=== PATIENT | female | born 1990 | race African-American/Black ===

== ENCOUNTER 2016-05-10 21:41 | Emergency (ER) | payer MEDICAID ==
[~2016-05-10] VITALS: Ht 160 cm; Wt 102.0 kg
[~2016-05-10 21:41] MED LIST: IBUP800T23 PO; PROM25TA5 PO
[2016-05-10 21:44] VITALS: BP 119/64; PULSE 79; RESP 16; TEMP 98.2; O2SAT 100
== END 2016-05-10 23:15 | disposition left against medical advice (07) ==
LOC: NED 21:41
DX: Z53.21 Procedure and treatment not carried out due to patient leaving prior to being seen by health care provider (principal)
CPT/HCPCS: 99281

== ENCOUNTER 2016-05-26 13:57 | Emergency (ER) | payer MEDICAID ==
[~2016-05-26] VITALS: Ht 157.5 cm; Wt 100.0 kg
[2016-05-26 14:02] VITALS: BP 131/64; PULSE 106; RESP 24; TEMP 98.7; O2SAT 100
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
[2016-05-26] MEDS ORDERED: methylPREDNISolone SOD SUCC 125 MG/2 ML VIAL IVP ONE (14:15)
[2016-05-26] MEDS ORDERED: SODIUM CHLORIDE 0.9% FLUSH 5 ML FLUSH IVF PRN (14:15)
[2016-05-26 14:22] VITALS: O2SAT 100
[2016-05-26] MEDS ORDERED: VENTAER INH (14:25)
[2016-05-26] MEDS ORDERED: TOPA25TA8 PO (14:25)
[2016-05-26] MEDS ORDERED: PAME25CA PO (14:25)
[2016-05-26] MEDS ORDERED: FERR1TAB36 PO (14:25)
[2016-05-26] MEDS: RESP: ALBUTEROL 2.5 MG/IPRATROPIUM 0.5 MG NEB (SCH) INH ×2 (14:31→14:32)
[2016-05-26 15:02] VITALS: BP 118/75; PULSE 99; RESP 22; O2SAT 98
[2016-05-26] MEDS ORDERED: ADVA250A INH (15:21)
[2016-05-26] MEDS ORDERED: ALBU6.7H INH (15:21)
[2016-05-26] MEDS ORDERED: PRED50 PO (15:21)
--- NOTE | 2016-05-27 21:18 | EKG ---
Date Performed: 05/26/2016 Time Performed: 14:15:31 PTAGE: 25 years EKG: SINUS TACHYCARDIA POSSIBLE RIGHT VENTRICULAR CONDUCTION DELAY NONSPECIFIC T-WAVE ABNORMALIT Y ABNORMAL RHYTHM ECG PREVIOUS TRACING : 05/09/2012 19.58 DOCTOR: Rene Lane Interpretating Date/Time 05/27/2016 21:08:53
== END 2016-05-26 15:34 | disposition home or self-care (01) ==
LOC: NEPC 13:57
DX: J45.901 Unspecified asthma with (acute) exacerbation (principal); F17.210 Nicotine dependence, cigarettes, uncomplicated; R94.31 Abnormal electrocardiogram [ECG] [EKG]
CPT/HCPCS: 93005; 94664; 96374; 99283; J2930

== ENCOUNTER 2016-07-07 14:06 | Emergency (ER) | payer MEDICAID ==
[~2016-07-07] VITALS: Ht 160 cm; Wt 104.5 kg
[~2016-07-07 14:06] MED LIST changes: +ADVA250A INH; +ALBU6.7H INH; +FERR1TAB36 PO; +PAME25CA PO; +PRED50 PO; +TOPA25TA8 PO; +VENTAER INH
[2016-07-07 14:07] VITALS: BP 120/59; PULSE 79; RESP 18; TEMP 98.6; O2SAT 98
--- NOTE | 2016-07-07 15:03 | PD ---
HPI Chief Complaint: Headache Time Seen by Provider: 15:03 Travel History International Travel<30 days: No Contact w/Intl Traveler<30days: No History of Present Illness HPI 25 year-old female history of migraine headaches presents to emergency department for evaluation of persistent migraine headache for the last 5 days. Patient states her migraine headaches typically do not last this long. She states that she has also been feeling dizzy and her vision has been different. She reports this typically does not have with her migraine headaches. No recent illnesses, fever, or chills. Denies any nausea or vomiting. No other focal deficits or weakness. Patient states she is not . Denies any urinary symptoms. No other symptoms to report. PFSH Past Medical History Anemia: Yes Asthma: Yes Autoimmune Disease: No Blood Disorders: No Anxiety: No Depression: Yes Cancer: No Cardiovascular Problems: No Diabetes: No Diminished Hearing: No Gastrointestinal Disorders: Yes Genitourinary: No Musculoskeletal: No Neurologic: No Psychiatric: No Respiratory: Yes (ASTHMA) Immunizations Current: Yes Migraines: Yes Seizures: No Thyroid Disease: No Ulcer: No ?: Not LMP: : 2 Para: 2 Miscarriage: 0 : 0 Past Surgical History Section: Yes (X2) Gynecologic Surgery: Yes (CSECTION) Other Surgery: No Social History Alcohol Use: No Tobacco Use: Yes (/2 ppd ) Substance Use: No Allergies-Medications (Allergen,Severity, Reaction): Coded Allergies: Penicillin (Verified Allergy, Severe, HIVES, 05/26/16) Reported Meds & Prescriptions Reported Meds & Active Scripts Active Proventil Hfa 6.7 GM Inh (Albuterol Sulfate) 90 Mcg/Act Aer 2 Puff INH Q4-6H PRN Advair Diskus Inh (Fluticasone-Salmeterol Inh) 250-50 Mcg/Blist Aer 1 Puff INH BID Rinse mouth after use. Prednisone 50 Mg Tab 50 Mg PO DAILY Phenergan (Promethazine HCl) 25 Mg Tab 25 Mg PO Q6H PRN Ibuprofen 800 Mg Tab 800 Mg PO Q8H PRN Reported Iron (Ferrous Sulfate) 325 Mg Tab 325 Mg PO DAILY Take Topamax (Topiramate) 25 Mg Tab 25 Mg PO BID Pamelor (Nortriptyline HCl) 25 Mg Cap 25 Mg PO HS Ventolin Hfa 18 GM Inh (Albuterol Sulfate) 90 Mcg/Act Aer 2 Puff INH Q4H PRN Review of Systems Except as stated in HPI: all other systems reviewed are Neg Physical Exam Narrative GENERAL: Well-nourished, well-developed female patient, ambulatory with a nonantalgic gait no acute distress SKIN: Warm and dry. HEAD: Normocephalic. Atraumatic EYES: No scleral icterus. No injection or drainage. NECK: Supple, trachea midline. No JVD or lymphadenopathy. CARDIOVASCULAR: Regular rate and rhythm without murmurs, gallops, or rubs. RESPIRATORY: Breath sounds equal bilaterally. No accessory muscle use. GASTROINTESTINAL: Abdomen soft, non-tender, nondistended. MUSCULOSKELETAL: No cyanosis, or edema. BACK: Nontender without obvious deformity. No CVA tenderness. NEUROLOGICAL: Awake and alert. Cranial nerves II through XII intact. Motor and sensory grossly within normal limits. Five out of 5 muscle strength in all muscle groups. Normal speech. Data Data Last Documented VS Vital Signs Date Time Temp Pulse Resp B/P Pulse Ox O2 Delivery O2 Flow Rate FiO2 07/07/16 14:07 98.6 79 18 120/59 98 Room Air Orders Complete Blood Count With Diff (07/07/16 14:50) Basic Metabolic Panel (Bmp) (07/07/16 14:50) Urinalysis - C+S If Indicated (07/07/16 14:50) Ct Brain W/O Iv Contrast(Rout) (07/07/16 ) Ed Urine Pregnancytest Poc (07/07/16 14:50) Sodium Chlor 0.9% 1000 Ml Inj (Ns 1000 M (07/07/16 17:45) Prochlorperazine Inj (Compazine Inj) (07/07/16 17:45) Labs Laboratory Tests Test 07/07/16 07/07/16 15:00 15:10 White Blood Count 7.5 TH/MM3 Red Blood Count 4.51 MIL/MM3 Hemoglobin 11.2 GM/DL Hematocrit 33.4 % Mean Corpuscular Volume 74.0 FL Mean Corpuscular Hemoglobin 24.7 PG Mean Corpuscular Hemoglobin 33.4 % Concent Red Cell Distribution Width 21.8 % Platelet Count 393 TH/MM3 Mean Platelet Volume 8.3 FL Neutrophils (%) (Auto) 50.4 % Lymphocytes (%) (Auto) 32.6 % Monocytes (%) (Auto) 11.4 % Eosinophils (%) (Auto) 4.3 % Basophils (%) (Auto) 1.3 % Neutrophils # (Auto) 3.8 TH/MM3 Lymphocytes # (Auto) 2.5 TH/MM3 Monocytes # (Auto) 0.9 TH/MM3 Eosinophils # (Auto) 0.3 TH/MM3 Basophils # (Auto) 0.1 TH/MM3 CBC Comment AUTO DIFF Differential Comment AUTO DIFF CONFIRMED Platelet Estimate NORMAL Platelet Morphology Comment ENLARGED Target Cells 1+ Keratocytes OCC Sodium Level 139 MEQ/L Potassium Level 3.8 MEQ/L Chloride Level 107 MEQ/L Carbon Dioxide Level 25.0 MEQ/L Anion Gap 7 MEQ/L Blood Urea Nitrogen 8 MG/DL Creatinine 0.82 MG/DL Estimat Glomerular Filtration 104 ML/MIN Rate Random Glucose 101 MG/DL Calcium Level 8.6 MG/DL Urine Color YELLOW Urine Turbidity CLEAR Urine pH 6.0 Urine Specific [place] 1.015 Urine Protein NEG mg/dL Urine Glucose (UA) NEG mg/dL Urine Ketones NEG mg/dL Urine Occult Blood MOD Urine Nitrite NEG Urine Bilirubin NEG Urine Urobilinogen LESS THAN 2.0 MG/DL Urine Leukocyte Esterase NEG Urine RBC 2 /hpf Urine WBC 2 /hpf Urine Squamous Epithelial 1 /hpf Cells Urine Mucus FEW /lpf Microscopic Urinalysis Comment CULT NOT INDICATED MDM Medical Decision Making Medical Screen Exam Complete: Yes Emergency Medical Condition: Yes Medical Record Reviewed: Yes Differential Diagnosis Migraine headache versus ocular migraine versus tension headache versus cluster headache versus electrolyte abnormality versus other intracranial etiology. Narrative Course 25year-old female presents to the emergency department for evaluation of a persistent migraine headache, different from her typical migraine headaches for duration and visual disturbances. Workup was initiated in triage. Once a medical bed becomes available, patient will be transferred and care assumed by that provider. Condition: Stable Eliza ParkP Jul 07, 2016 15:03
[2016-07-07 15:38] LABS: AUTOMATED NEUTROPHIL # 3.8 TH/MM3 (1.8-7.7); BASOPHIL # 0.1 TH/MM3 (0-0.2); BASOPHIL % 1.3 % (0.0-2.0); EOSINOPHIL # 0.3 TH/MM3 (0-0.4); EOSINOPHIL % 4.3 % (0.0-4.0); HEMATOCRIT 33.4 % (35.0-46.0); LYMPH % 32.6 % (9.0-44.0); LYMPHOCYTE # 2.5 TH/MM3 (1.0-4.8); MEAN CORPUSCULAR HEMOGLOBIN 24.7 PG (27.0-34.0); MEAN CORPUSCULAR HGB CONC 33.4 % (32.0-36.0); MONO % 11.4 % (0.0-8.0); NEUT % 50.4 % (16.0-70.0); PLATELET COUNT 393 TH/MM3 (150-450); RED BLOOD COUNT 4.51 MIL/MM3 (4.00-5.30); RED CELL DISTRIBUTION WIDTH 21.8 % (11.6-17.2); WHITE BLOOD COUNT 7.5 TH/MM3 (4.0-11.0)
[2016-07-07 15:43] LABS: HEMO FLAGS AUTO DIFF
[2016-07-07 15:51] LABS: BLOOD, URINE MOD (NEG); COMMENT (UR) CULT NOT INDICATED; CULTURE IF INDICATED CULT NOT INDICATED; GLUCOSE,URINE NEG (NEG); KETONE, URINE NEG (NEG); MUCUS URINE FEW /lpf (OCC); NITRITE,URINE NEG (NEG); SQUAMOUS EPITHELIAL CELL URINE 1 /hpf (0-5); URINE COLOR YELLOW (YELLW/STRAW)
[2016-07-07 16:15] LABS: POTASSIUM 3.8 MEQ/L (3.5-5.1)
--- NOTE | 2016-07-07 16:17 | RADRPT ---
EXAM DATE/TIME: 07/07/2016 15:40 [facility] COMPARISON: CT BRAIN W/O CONTRAST, November 21, 2011, 16:26. INDICATIONS : Patient complains of migraine RADIATION DOSE: 56.35 CTDIvol (mGy) MEDICAL HISTORY : None SURGICAL HISTORY : None. ENCOUNTER: Initial ACUITY: 2 days PAIN SCALE: 8/10 LOCATION: cranial TECHNIQUE: Multiple contiguous axial images were obtained of the head. Using automated exposure control and adjustment of the mA and/or kV according to patient size, radiation dose was kept as low as reasonably achievable to obtain optimal diagnostic quality images. FINDINGS: CEREBRUM: The ventricles are normal for age. No evidence of midline shift, mass lesion, hemorrha ge or acute infarction. No extra-axial fluid collections are seen. POSTERIOR FOSSA: The cerebellum and brainstem are intact. The 4th ventricle is midline. The cer ebellopontine angle is unremarkable. EXTRACRANIAL: The visualized portion of the orbits is intact. SKULL: The calvaria is intact. No evidence of skull fracture. CONCLUSION: Negative for an acute process. Ray Lamb MD FACR on July 07, 2016 at 16:14 Board Certified Radiologist. This report was verified electronically.
[2016-07-07 16:26] LABS: KERATOCYTES OCC (NORMAL); TARGET CELLS 1+ (NORMAL)
[2016-07-07 16:27] LABS: PLATELET ESTIMATE SMEAR NORMAL (NORMAL); PLATELET MORPHOLOGY ENLARGED (NORMAL); SCAN/DIFF AUTO DIFF CONFIRMED
--- NOTE | 2016-07-07 17:25 | PD ---
HPI Chief Complaint: Headache Time Seen by Provider: 17:22 Travel History International Travel<30 days: No Contact w/Intl Traveler<30days: No History of Present Illness HPI 25-year-old female came to the emergency room with history of headache. Patient says that this headache has been persistent for past 4 days. She has history of migraines and she took migraine medication but it did not get better. She describes the pain all around her head. No history of vomiting or nausea. No history of fever or chills. No history of neck pain. She was seen by the provider in triage earlier work or workup was started and head CT was done. Medical time she came in her results were back and they're within normal limits. Her vital signs were within normal limits. Patient describes the pain 7 out of 10. PFSH Past Medical History Narrative Medical List of her past medical, surgical, social and family history is reviewed from the nursing note. Anemia: Yes Asthma: Yes Autoimmune Disease: No Blood Disorders: No Anxiety: No Depression: Yes Cancer: No Cardiovascular Problems: No Diabetes: No Diminished Hearing: No Gastrointestinal Disorders: Yes Genitourinary: No Musculoskeletal: No Neurologic: No Psychiatric: No Respiratory: Yes (ASTHMA) Immunizations Current: Yes Migraines: Yes Seizures: No Thyroid Disease: No Ulcer: No ?: Not LMP: : 2 Para: 2 Miscarriage: 0 : 0 Past Surgical History Section: Yes (X2) Gynecologic Surgery: Yes (CSECTION) Other Surgery: No Social History Alcohol Use: No Tobacco Use: Yes (1/2 ppd ) Substance Use: No Allergies-Medications (Allergen,Severity, Reaction): Coded Allergies: Penicillin (Verified Allergy, Severe, HIVES, 05/26/16) Comments Allergies reviewed from the nursing note. Reported Meds & Prescriptions Reported Meds & Active Scripts Active Proventil Hfa 6.7 GM Inh (Albuterol Sulfate) 90 Mcg/Act Aer 2 Puff INH Q4-6H PRN Advair Diskus Inh (Fluticasone-Salmeterol Inh) 250-50 Mcg/Blist Aer 1 Puff INH BID Rinse mouth after use. Ibuprofen 800 Mg Tab 800 Mg PO Q8H PRN Reported Iron (Ferrous Sulfate) 325 Mg Tab 325 Mg PO DAILY Take Pamelor (Nortriptyline HCl) 25 Mg Cap 25 Mg PO HS Ventolin Hfa 18 GM Inh (Albuterol Sulfate) 90 Mcg/Act Aer 2 Puff INH Q4H PRN Narrative Medication List of her home medications reviewed from the nursing note. Review of Systems Except as stated in HPI: all other systems reviewed are Neg Physical Exam Narrative GENERAL: Awake, alert, obese, mild distress SKIN: Warm and dry. HEAD: Atraumatic. Normocephalic. EYES: Pupils equal and round. No scleral icterus. No injection or drainage. ENT: No nasal bleeding or discharge. Mucous membranes pink and moist. NECK: Trachea midline. No JVD. No neck rigidity CARDIOVASCULAR: Regular rate and rhythm. No murmur appreciated. RESPIRATORY: No accessory muscle use. Clear to auscultation. Breath sounds equal bilaterally. GASTROINTESTINAL: Abdomen soft, non-tender, nondistended. Hepatic and splenic margins not palpable. MUSCULOSKELETAL: No obvious deformities. No clubbing. No cyanosis. No edema. NEUROLOGICAL: Awake and alert. No obvious cranial nerve deficits. Motor grossly within normal limits. Normal speech. PSYCHIATRIC: Appropriate mood and affect; insight and judgment normal. Data Data Last Documented VS Vital Signs Date Time Temp Pulse Resp B/P Pulse Ox O2 Delivery O2 Flow Rate FiO2 07/07/16 21:14 74 18 112/60 98 07/07/16 19:24 Room Air 07/07/16 14:07 98.6 Orders Complete Blood Count With Diff (07/07/16 14:50) Basic Metabolic Panel (Bmp) (07/07/16 14:50) Urinalysis - C+S If Indicated (07/07/16 14:50) Ct Brain W/O Iv Contrast(Rout) (07/07/16 ) Ed Urine Pregnancytest Poc (07/07/16 14:50) Sodium Chlor 0.9% 1000 Ml Inj (Ns 1000 M (07/07/16 17:45) Prochlorperazine Inj (Compazine Inj) (07/07/16 17:45) Sodium Chlor 0.9% 1000 Ml Inj (Ns 1000 M (07/07/16 18:30) Labs Laboratory Tests Test 07/07/16 07/07/16 15:00 15:10 White Blood Count 7.5 TH/MM3 Red Blood Count 4.51 MIL/MM3 Hemoglobin 11.2 GM/DL Hematocrit 33.4 % Mean Corpuscular Volume 74.0 FL Mean Corpuscular Hemoglobin 24.7 PG Mean Corpuscular Hemoglobin 33.4 % Concent Red Cell Distribution Width 21.8 % Platelet Count 393 TH/MM3 Mean Platelet Volume 8.3 FL Neutrophils (%) (Auto) 50.4 % Lymphocytes (%) (Auto) 32.6 % Monocytes (%) (Auto) 11.4 % Eosinophils (%) (Auto) 4.3 % Basophils (%) (Auto) 1.3 % Neutrophils # (Auto) 3.8 TH/MM3 Lymphocytes # (Auto) 2.5 TH/MM3 Monocytes # (Auto) 0.9 TH/MM3 Eosinophils # (Auto) 0.3 TH/MM3 Basophils # (Auto) 0.1 TH/MM3 CBC Comment AUTO DIFF Differential Comment AUTO DIFF CONFIRMED Platelet Estimate NORMAL Platelet Morphology Comment ENLARGED Target Cells 1+ Keratocytes OCC Sodium Level 139 MEQ/L Potassium Level 3.8 MEQ/L Chloride Level 107 MEQ/L Carbon Dioxide Level 25.0 MEQ/L Anion Gap 7 MEQ/L Blood Urea Nitrogen 8 MG/DL Creatinine 0.82 MG/DL Estimat Glomerular Filtration 104 ML/MIN Rate Random Glucose 101 MG/DL Calcium Level 8.6 MG/DL Urine Color YELLOW Urine Turbidity CLEAR Urine pH 6.0 Urine Specific [place] 1.015 Urine Protein NEG mg/dL Urine Glucose (UA) NEG mg/dL Urine Ketones NEG mg/dL Urine Occult Blood MOD Urine Nitrite NEG Urine Bilirubin NEG Urine Urobilinogen LESS THAN 2.0 MG/DL Urine Leukocyte Esterase NEG Urine RBC 2 /hpf Urine WBC 2 /hpf Urine Squamous Epithelial 1 /hpf Cells Urine Mucus FEW /lpf Microscopic Urinalysis Comment CULT NOT INDICATED MDM Medical Decision Making Medical Screen Exam Complete: Yes Emergency Medical Condition: Yes Medical Record Reviewed: Yes Differential Diagnosis Status migrainous, headache NOS Narrative Course 7:03 PM patient was given IV Reglan and IV fluid bolus. I will discharge her home at this point. Procedures EKG Prior to Arrival: No Diagnosis Primary Impression: Status migrainosus Referrals: Primary Care Physician 2 days Additional Instructions: Please return to the ER if the condition worsens or any other new concerns. Otherwise follow with his primary care. Do not drink alcohol or smoke cigarettes. Try to stay away from television, computer or telephone screens and give her eyes rest. Follow-up with your primary care. Drink lots of fluid. Med/Other Pt SpecificInfo: No Change to Meds Disposition: 01 DISCHARGE HOME Condition: Stable Dayday Rubin MD Jul 07, 2016 17:25
[2016-07-07] MEDS ORDERED: SODIUM CHLOR 0.9% 1000 ML INJ 1,000 ML IV ONE ×2 (17:45→18:30)
[2016-07-07] MEDS ORDERED: PROCHLORPERAZINE INJ 10 MG/2 ML VIAL IVS ONE (17:45)
[2016-07-07 19:24] VITALS: BP 110/60; PULSE 72; RESP 18; O2SAT 99
[2016-07-07 21:14] VITALS: BP 112/60
== END 2016-07-07 21:15 | disposition home or self-care (01) ==
LOC: NEPC 14:06
DX: G43.801 Other migraine, not intractable, with status migrainosus (principal); R42 Dizziness and giddiness; H53.8 Other visual disturbances; F17.200 Nicotine dependence, unspecified, uncomplicated; Z86.2 Personal history of diseases of the blood and blood-forming organs and certain disorders involving the immune mechanism; Z87.09 Personal history of other diseases of the respiratory system; Z86.59 Personal history of other mental and behavioral disorders; Z87.19 Personal history of other diseases of the digestive system; Z86.69 Personal history of other diseases of the nervous system and sense organs
CPT/HCPCS: 70450; 80048; 81001; 84703; 85025; 96374; 99284; J0780; J7030

== ENCOUNTER 2016-09-20 01:21 | Emergency (ER) | payer MEDICAID ==
[~2016-09-20] VITALS: Ht 160 cm; Wt 102.6 kg
[~2016-09-20 01:21] MED LIST changes: -PRED50 PO; -PROM25TA5 PO; -TOPA25TA8 PO
[2016-09-20 01:26] VITALS: BP 107/65; PULSE 89; RESP 16; TEMP 98.3; O2SAT 99
--- NOTE | 2016-09-20 02:51 | PD ---
HPI Chief Complaint: Headache Time Seen by Provider: 02:47 Travel History International Travel<30 days: No Contact w/Intl Traveler<30days: No Traveled to known affect area: No History of Present Illness HPI The patient is a 25-year-old female that had a global migraine, her typical migraine beginning around 6 PM yesterday. She states she usually gets Compazine either I am her IV. She is a difficult IV stick.She has no nausea at this time but has been nauseated. There is been no vomiting. She denies any focal neurologic change. The headache is of gradual onset. PFSH Past Medical History Anemia: Yes Asthma: Yes Autoimmune Disease: No Blood Disorders: No Anxiety: No Depression: Yes Cancer: No Cardiovascular Problems: No Diabetes: No Diminished Hearing: No Gastrointestinal Disorders: Yes Genitourinary: No Musculoskeletal: No Neurologic: No Psychiatric: No Respiratory: Yes (ASTHMA) Immunizations Current: Yes Migraines: Yes Seizures: No Thyroid Disease: No Ulcer: No ?: Unknown LMP: 08/26/16 : 3 Para: 2 Miscarriage: 0 : 0 Ectopic : Yes Past Surgical History Section: Yes (X2) Gynecologic Surgery: Yes (CSECTION) Other Surgery: No Social History Alcohol Use: No Tobacco Use: Yes (/2 ppd ) Substance Use: No Allergies-Medications (Allergen,Severity, Reaction): Coded Allergies: Penicillin (Verified Allergy, Severe, HIVES, 05/26/16) Reported Meds & Prescriptions Reported Meds & Active Scripts Active Proventil Hfa 6.7 GM Inh (Albuterol Sulfate) 90 Mcg/Act Aer 2 Puff INH Q4-6H PRN Advair Diskus Inh (Fluticasone-Salmeterol Inh) 250-50 Mcg/Blist Aer 1 Puff INH BID Rinse mouth after use. Ibuprofen 800 Mg Tab 800 Mg PO Q8H PRN Reported Iron (Ferrous Sulfate) 325 Mg Tab 325 Mg PO DAILY Take Pamelor (Nortriptyline HCl) 25 Mg Cap 25 Mg PO HS Ventolin Hfa 18 GM Inh (Albuterol Sulfate) 90 Mcg/Act Aer 2 Puff INH Q4H PRN Review of Systems Except as stated in HPI: all other systems reviewed are Neg Physical Exam Narrative GENERAL: The patient is alert, oriented 3 and moderate apparent distress with her headache. Her vital signs are normal. SKIN: Focused skin assessment warm/dry. HEAD: Atraumatic. Normocephalic. EYES: Pupils equal and round. No scleral icterus. No injection or drainage. ENT: No nasal bleeding or discharge. Mucous membranes pink and moist. NECK: Trachea midline. No JVD. There is no meningismus present. CARDIOVASCULAR: Regular rate and rhythm. No murmur appreciated. RESPIRATORY: No accessory muscle use. Clear to auscultation. Breath sounds equal bilaterally. GASTROINTESTINAL: Abdomen soft, non-tender, nondistended. Hepatic and splenic margins not palpable. MUSCULOSKELETAL: No obvious deformities. No clubbing. No cyanosis. No edema. NEUROLOGICAL: Awake and alert. No obvious cranial nerve deficits. Motor grossly within normal limits. Normal speech and gait. PSYCHIATRIC: Appropriate mood and affect; insight and judgment normal. Data Data Last Documented VS Vital Signs Date Time Temp Pulse Resp B/P Pulse Ox O2 Delivery O2 Flow Rate FiO2 09/20/16 01:36 20 99 09/20/16 01:26 98.3 89 107/65 Room Air Orders Prochlorperazine Inj (Compazine Inj) (09/20/16 03:00) Ketorolac Inj (Toradol Inj) (09/20/16 03:00) MDM Medical Decision Making Medical Screen Exam Complete: Yes Emergency Medical Condition: Yes Medical Record Reviewed: Yes Differential Diagnosis Migraine headache, tension headache, tension/migraine combination headache, cluster headache, subarachnoid hemorrhagehighly unlikely Narrative Course The patient appears to have a migraine headache. It is now 0331 and the patient feels better and wants to go home. Diagnosis Primary Impression: Migraine headache without aura Additional Instructions: Follow-up with her primary care physician this week, your primary care physician may be able to write something to prevent these headaches. Med/Other Pt SpecificInfo: No Change to Meds Disposition: 01 DISCHARGE HOME Condition: Stable Mal Acosta MD September 20, 2016 02:51
[2016-09-20] MEDS ORDERED: PROCHLORPERAZINE INJ 10 MG/2 ML VIAL IM ONE (03:00)
[2016-09-20] MEDS ORDERED: KETOROLAC TROMETHAMINE 60 MG/2 ML (IM) VIAL IM ONE (03:00)
[2016-09-20 03:43] VITALS: BP 110/67
== END 2016-09-20 03:46 | disposition home or self-care (01) ==
LOC: PHED 01:21
DX: G43.909 Migraine, unspecified, not intractable, without status migrainosus (principal); D64.9 Anemia, unspecified; J45.909 Unspecified asthma, uncomplicated; F32.9 Major depressive disorder, single episode, unspecified; F17.200 Nicotine dependence, unspecified, uncomplicated; Z79.52 Long term (current) use of systemic steroids; Z79.899 Other long term (current) drug therapy; Z88.0 Allergy status to penicillin
CPT/HCPCS: 96372; 99283; J0780; J1885

== ENCOUNTER 2016-12-06 20:09 | Emergency (ER) | payer MEDICAID ==
[~2016-12-06] VITALS: Ht 162.6 cm; Wt 102.3 kg
[2016-12-06 20:25] VITALS: BP 132/79; PULSE 70; RESP 12; TEMP 98.6; O2SAT 99
--- NOTE | 2016-12-06 20:46 | PD ---
HPI Chief Complaint: Dental Pain Time Seen by Provider: 20:45 Travel History International Travel<30 days: No Contact w/Intl Traveler<30days: No History of Present Illness HPI 25-year-old Af[place] female presents the emergency Department with increasing dental pain status post extraction of the #15 tooth 2 days ago. Patient is currently on clindamycin 150 mg every 6 hours as well as ibuprofen, and Lortab. She is also using Peridex oral rinse twice daily. Patient states increasing pain but not increasing swelling in the left upper jaw. Patient describes sensitivity to hot and cold. She denies difficulty swallowing, fever , chills, or other symptoms. She states she is allergic to penicillin but can take amoxicillin. PFSH Past Medical History Anemia: Yes Asthma: Yes Autoimmune Disease: No Blood Disorders: No Anxiety: No Depression: Yes Cancer: No Cardiovascular Problems: No Diabetes: No Diminished Hearing: No Gastrointestinal Disorders: Yes Genitourinary: No Musculoskeletal: No Neurologic: No Psychiatric: No Respiratory: Yes (ASTHMA) Immunizations Current: Yes Migraines: Yes Seizures: No Thyroid Disease: No Ulcer: No : 3 Para: 2 Miscarriage: 0 : 0 Ectopic : Yes Past Surgical History Section: Yes (X2) Gynecologic Surgery: Yes (CSECTION) Other Surgery: No Social History Alcohol Use: No Tobacco Use: Yes (1/2 ppd ) Substance Use: No Allergies-Medications (Allergen,Severity, Reaction): Coded Allergies: Penicillin (Verified Allergy, Severe, HIVES, 12/06/16) Reported Meds & Prescriptions Reported Meds & Active Scripts Active Advair Diskus Inh (Fluticasone-Salmeterol Inh) 250-50 Mcg/Blist Aer 1 Puff INH BID Rinse mouth after use. Ibuprofen 800 Mg Tab 800 Mg PO Q8H PRN Reported Topamax (Topiramate) 50 Mg Tab 50 Mg PO DAILY Ferrous Sulfate 325 Mg (65 Mg Iron) Tablet 325 Mg PO DAILY Pamelor (Nortriptyline HCl) 25 Mg Cap 25 Mg PO HS Ventolin Hfa 18 GM Inh (Albuterol Sulfate) 90 Mcg/Act Aer 2 Puff INH Q4H PRN Review of Systems Except as stated in HPI: all other systems reviewed are Neg General / Constitutional: No: Fever Eyes: No: Visual changes HENT: Positive: Dental Difficulties, No: Headaches Cardiovascular: No: Chest Pain or Discomfort Respiratory: No: Shortness of Breath Gastrointestinal: No: Abdominal Pain Genitourinary: No: Dysuria Musculoskeletal: No: Pain Skin: No Rash Neurologic: No: Weakness Psychiatric: No: Depression Endocrine: No: Polydipsia Hematologic/Lymphatic: No: Easy Bruising Physical Exam Narrative GENERAL: Patient appears in mild to moderate distress SKIN: Warm and dry. Normal color. Normal turgor. HEAD: Atraumatic. Normocephalic. Mild swelling of the left upper jaw noted. EYES: Pupils equal and round. No scleral icterus. No injection or drainage. ENT: No nasal bleeding or discharge. Mucous membranes pink and moist. Pharynx is clear. Airway is patent. Uvula is midline. No significant lymphadenopathy or tonsillitis. Patient has mild swelling of the upper gingiva at area of extraction. There is packing noted in the extraction area. There is no significant erythema or drainage. NECK: Trachea midline. Supple and nontender without significant lymphadenopathy. CARDIOVASCULAR: Regular rate and rhythm. RESPIRATORY: No accessory muscle use. Clear to auscultation. Breath sounds equal bilaterally. MUSCULOSKELETAL: Extremities without clubbing, cyanosis, or edema. No obvious deformities. NEUROLOGICAL: Awake and alert. No obvious cranial nerve deficits. Motor grossly within normal limits. Five out of 5 muscle strength in the arms and legs. Normal speech. PSYCHIATRIC: Appropriate mood and affect; insight and judgment normal. Data Data Last Documented VS Vital Signs Date Time Temp Pulse Resp B/P Pulse Ox O2 Delivery O2 Flow Rate FiO2 12/06/16 21:03 12/06/16 20:25 98.6 70 12 99 Orders Bsia-Gzvo-Uzkk Liq (Magic Mouthwash Adul (12/06/16 20:52) Amoxicillin (Trimox) (12/06/16 21:00) [facility] Medical Decision Making Medical Screen Exam Complete: Yes Emergency Medical Condition: Yes Medical Record Reviewed: Yes Differential Diagnosis Dental pain. Dental abscess. Status post extraction. Narrative Course Patient is medically stable at time of exam. Patient is given amoxicillin 500 mg by mouth now. Patient is given a trial of Magic mouthwash by mouth as directed. Patient is continue amoxicillin 875 twice a day 10 days. Patient is continue her other meds as previously prescribed. Patient is given Magic mouthwash 5-10 mL every 2 hours when necessary swish and spit. 120 mL's with no refills. Patient follow with dentist as discussed. Diagnosis Primary Impression: Pain, dental Referrals: Dentist Patient Instructions: General Instructions Additional Instructions: Patient is continue amoxicillin 875 twice a day 10 days. Patient is continue her other meds as previously prescribed. Patient is given Magic mouthwash 5-10 mL every 2 hours when necessary swish and spit. 120 mL's with no refills. Patient follow with dentist as discussed. Med/Other Pt SpecificInfo: Prescription(s) given Scripts Gidkcpws-Vrcgpkbauwimirg-Uwqkbnemw Liq (Magic Mouthwash Adult Liq)120 Ml Susp5 Ml SWISH-SWAL ACHS #120 ML Each 5 mL contains: Nystatin 200,000 units, Diphenhydramine 4.25 mg, Viscous Lidocaine 10 mg, Atkinson syrup 0.8 mL Prov:Brian Wiley MD 12/06/16 Amoxicillin 875 Mg [id number] Mg PO BID #20 TAB Prov:Brian Wiley MD 12/06/16 Disposition: 01 DISCHARGE HOME Condition: Stable Kris Baker Dec 06, 2016 20:46
[2016-12-06] MEDS ORDERED: NYSTAT/DIPHENHY/LIDO MOUTHWASH (Adult) 120ML SWISH-SPIT STA (20:52)
[2016-12-06] MEDS ORDERED: AMOXICILLIN (TRIHYDRATE) 500 MG CAP PO ONE (21:00)
[2016-12-06] MEDS ORDERED: FERR325T8 PO (21:01)
[2016-12-06] MEDS ORDERED: TOPA50TA7 PO (21:02)
[2016-12-06] MEDS ORDERED: MAGICADU2 SWISH-SWAL (21:19)
[2016-12-06] MEDS ORDERED: AMOX875T PO (21:19)
== END 2016-12-06 21:45 | disposition home or self-care (01) ==
LOC: PHED 20:09 → PHEFT 21:45
DX: K08.89 Other specified disorders of teeth and supporting structures (principal); F17.200 Nicotine dependence, unspecified, uncomplicated; Z86.2 Personal history of diseases of the blood and blood-forming organs and certain disorders involving the immune mechanism; Z87.09 Personal history of other diseases of the respiratory system; Z86.59 Personal history of other mental and behavioral disorders; Z87.19 Personal history of other diseases of the digestive system; Z86.69 Personal history of other diseases of the nervous system and sense organs
CPT/HCPCS: 99284

== ENCOUNTER 2017-02-01 00:30 | Emergency (ER) | payer MEDICAID ==
[~2017-02-01] VITALS: Ht 160 cm; Wt 99.9 kg
[~2017-02-01 00:30] MED LIST changes: -ALBU6.7H INH; +AMOX875T PO; -FERR1TAB36 PO; +FERR325T8 PO; +MAGICADU2 SWISH-SWAL; +TOPA50TA7 PO
[2017-02-01 00:37] VITALS: BP 122/61; PULSE 78; RESP 16; TEMP 98.7; O2SAT 100
[2017-02-01] MEDS ORDERED: ASPI1TAB93 PO (00:51)
--- NOTE | 2017-02-01 01:03 | PD ---
HPI Chief Complaint: Musculoskeletal Complaint Time Seen by Provider: 00:53 Travel History International Travel<30 days: No Contact w/Intl Traveler<30days: No Traveled to known affect area: No History of Present Illness HPI The patient is a 26-year-old female that complains of left shoulder pain for almost a month. She states that she couldn't sleep tonight so she came to the emergency room. The pain does not shoot down her arm, it is between the neck and the shoulder on the trapezius muscle. She is a frequent visitor to emergency department. She states there is no possibility of . PFSH Past Medical History Anemia: Yes Asthma: Yes Autoimmune Disease: No Blood Disorders: No Anxiety: No Depression: Yes Cancer: No Cardiovascular Problems: No Diabetes: No Diminished Hearing: No Gastrointestinal Disorders: Yes Genitourinary: No Musculoskeletal: No Neurologic: No Psychiatric: No Respiratory: Yes (ASTHMA) Immunizations Current: Yes Migraines: Yes Seizures: No Thyroid Disease: No Ulcer: No Influenza Vaccination: No ?: Not LMP: 12/23/16 : 3 Para: 2 Miscarriage: 0 : 0 Ectopic : Yes Past Surgical History Section: Yes (X2) Gynecologic Surgery: Yes (CSECTION) Other Surgery: No Social History Alcohol Use: Yes (occ) Tobacco Use: Yes (1/2 ppd ) Substance Use: No Allergies-Medications (Allergen,Severity, Reaction): Coded Allergies: penicillin G (Unverified Allergy, Severe, HIVES, 02/01/17) Reported Meds & Prescriptions Reported Meds & Active Scripts Active Advair Diskus Inh (Fluticasone-Salmeterol Inh) 250-50 Mcg/Blist Aer 1 Puff INH BID Rinse mouth after use. Reported Excedrin Extra Strength (Rrdoodv-Edzybuqehbvjh-Ptsgjehb) 250 Mg-250 Mg-65 Mg Tab 1 Tab PO ONCE PRN Topamax (Topiramate) 50 Mg Tab 50 Mg PO DAILY Ferrous Sulfate 325 Mg (65 Mg Iron) Tablet 325 Mg PO DAILY Pamelor (Nortriptyline HCl) 25 Mg Cap 25 Mg PO HS Ventolin Hfa 18 GM Inh (Albuterol Sulfate) 90 Mcg/Act Aer 2 Puff INH Q4H PRN Review of Systems Except as stated in HPI: all other systems reviewed are Neg Physical Exam Narrative GENERAL: Well-nourished, well-developed patient in slight apparent distress with her left shoulder discomfort. Her vital signs are normal. SKIN: Focused skin assessment warm/dry. HEAD: Normocephalic. EYES: No scleral icterus. No injection or drainage. NECK: Supple, trachea midline. No JVD or lymphadenopathy. CARDIOVASCULAR: Regular rate and rhythm without murmurs, gallops, or rubs. RESPIRATORY: Breath sounds equal bilaterally. No accessory muscle use. GASTROINTESTINAL: Abdomen soft, non-tender, nondistended. MUSCULOSKELETAL: No cyanosis, or edema. There is no tenderness over the shoulder or the neck. There is tenderness over the left trapezius between the neck and the shoulder. No deformity is noted. BACK: Nontender without obvious deformity. No CVA tenderness. Data Data Last Documented VS Vital Signs Date Time Temp Pulse Resp B/P (MAP) Pulse Ox O2 Delivery O2 Flow Rate FiO2 02/01/17 00:37 98.7 78 16 122/61 (81) 100 Orders Orders Ketorolac Inj (Toradol Inj) (02/01/17 01:15) Orphenadrine Inj (Norflex Inj) (02/01/17 01:15) MDM Medical Decision Making Medical Screen Exam Complete: Yes Emergency Medical Condition: Yes Medical Record Reviewed: Yes Differential Diagnosis Rotator cuff tear, cervical radiculopathy, muscle strain Narrative Course The patient has a muscle strain/inflammation of the left trapezius. This is becoming chronic. Plan: She'll be given a prescription for ibuprofen 600 mg 3 times daily and Flexeril 10 mg 3 times a day. She needs to follow-up with her primary care physician. She should use a heating pad on its lowest setting and interposing a towel between her skin and the pad. Additional Instructions: Use a heating pad as you have been doing, on its lowest setting and interposing a towel between your skin and the pad. Both the Flexeril and Motrin are taken 3 times daily. Follow-up with your primary care physician. We will give you also a 2 day work excuse. Med/Other Pt SpecificInfo: Prescription(s) given Scripts Cyclobenzaprine (Flexeril) 10 Mg Tab 10 MG PO TID for Muscle Spasm, #30 TAB 0 Refills Prov: Mal Acosta MD 02/01/17 Ibuprofen (Ibuprofen) 600 Mg Tab 600 MG PO TID, #33 TAB 0 Refills Prov: Mal Acosta MD 02/01/17 Disposition: 01 DISCHARGE HOME Condition: Stable Mal Acosta MD Feb 01, 2017 01:03
[2017-02-01] MEDS ORDERED: IBUP-232 PO (01:11)
[2017-02-01] MEDS ORDERED: CYCL1TAB29 PO (01:11)
[2017-02-01] MEDS ORDERED: KETOROLAC TROMETHAMINE 60 MG/2 ML (IM) VIAL IM ONE (01:15)
[2017-02-01] MEDS ORDERED: ORPHENADRINE INJ 60 MG/2 ML AMP IM ONE (01:15)
[2017-02-01 01:55] VITALS: BP 122/69
== END 2017-02-01 01:58 | disposition home or self-care (01) ==
LOC: PHED 00:30
DX: S46.812A Strain of other muscles, fascia and tendons at shoulder and upper arm level, left arm, initial encounter (principal); F17.200 Nicotine dependence, unspecified, uncomplicated; Z86.2 Personal history of diseases of the blood and blood-forming organs and certain disorders involving the immune mechanism; Z87.09 Personal history of other diseases of the respiratory system; Z86.59 Personal history of other mental and behavioral disorders; Z87.19 Personal history of other diseases of the digestive system; Z86.69 Personal history of other diseases of the nervous system and sense organs; X58.XXXA Exposure to other specified factors, initial encounter
CPT/HCPCS: 96372; 99284; J1885; J2360